=== PATIENT | female | born 1955 | race Caucasian/White ===

== ENCOUNTER → 2017-09-12 | Outpatient (CLI) | payer BC ==
--- NOTE | 2017-09-13 12:08 | MM ---
Reason for exam: screening (asymptomatic). Last mammogram was performed 1 year and 2 months ago. History: Patient is postmenopausal and had first child at age 34. Benign left breast aspiration of the left breast, July 30, 2013. Benign cyst aspiration of the right breast, 2008. Benign cyst aspiration of the left breast , 1979. Taking progesterone for 3 years 2 months. Physical Findings: A clinical breast exam by your physician is recommended on an annual basis and results should be correlated with mammographic findings. MG Screening Mammo w CAD Bilateral CC and MLO view(s) were taken. Prior study comparison: July 02, 2016, bilateral MG screening mammo w CAD. August 24, 2015, left breast MG 3d work up w/cad LT. The breast tissue is extremely dense which could obscure a lesion on mammography. Finding #1: There is a new 12 mm circumscribed oval mass in the middle position of the right breast. Finding #2: There are typically benign round calcifications in both breasts. Previous mammotome biopsy in the left breast. There is a chronic nodularity in the left breast. New developing asymmetry left upper outer quadrant. New focal asymmetry right posterior depth central MLO view. ASSESSMENT: Incomplete: need additional imaging evaluation, BI-RAD 0 RECOMMENDATION: Special view mammogram of both breasts. If lesion persists on supplemental views, image directed ultrasound is recommended. [facility] will attempt to contact patient to return for supplemental views and ultrasound if indicated. JACQUELINE
== END | disposition home or self-care (01) ==
LOC: RADMAMWWP 06:51
PROVIDERS: ATTEND Obstetrics & Gynecology
DX: Z12.31 Encounter for screening mammogram for malignant neoplasm of breast (principal)
CPT/HCPCS: 77067

== ENCOUNTER → 2017-09-18 | Outpatient (CLI) | payer BC ==
--- NOTE | 2017-09-18 08:34 | MM ---
Reason for exam: additional evaluation requested from abnormal screening. Last mammogram was performed less than 1 month ago. History: Patient is postmenopausal and had first child at age 34. Benign left breast aspiration of the left breast, July 30, 2013. Benign cyst aspiration of the right breast, 2008. Benign cyst aspiration of the left breast, 1979. Taking progesterone for 3 years 2 months. Physical Findings: Nurse did not find any significant physical abnormalities on exam. MG Work Up Mamm w CAD BILAT Bilateral spot compression CC, spot compression MLO, and LM view(s) were taken. Prior study comparison: September 12, 2017, bilateral MG screening mammo w CAD. July 02, 2016, bilateral MG screening mammo w CAD. The breast tissue is heterogeneously dense. This may lower the sensitivity of mammography. Right persistent nodularity. Left ultrasound recommended. These results were verbally communicated with the patient and result sheet given to the patient on 09/18/17. ASSESSMENT: Incomplete: need additional imaging evaluation, BI-RAD 0 RECOMMENDATION: Ultrasound of both breasts.
--- NOTE | 2017-09-18 08:36 | USB ---
Reason for exam: additional evaluation requested from abnormal screening. History: Patient is postmenopausal and had first child at age 34. Benign left breast aspiration of the left breast, July 30, 2013. Benign cyst aspiration of the right breast, 2008. Benign cyst aspiration of the left breast, 1979. Taking progesterone for 3 years 2 months. US Breast Workup Limited WEN Right breast ultrasound demonstrates a 0.6 x 0.5 x 0.5cm lesion too small to characterize at 3 o'clock and a 1.0 x 0.6 x 1.0cm cystic lesion at 6 o'clock. Left breast ultrasound demonstrates a 0.8 x 0.6 x 0.6cm mixed lesion at 2 o'clock. These results were verbally communicated with the patient and result sheet given to the patient on 09/18/17. ASSESSMENT: Probably benign, BI-RAD 3 RECOMMENDATION: Follow-up diagnostic mammogram and ultrasound of both breasts in 6 months.
== END | disposition home or self-care (01) ==
LOC: RADMAMWWP 07:02
PROVIDERS: ATTEND Obstetrics & Gynecology
DX: R92.8 Other abnormal and inconclusive findings on diagnostic imaging of breast (principal)
CPT/HCPCS: 77066

== ENCOUNTER → 2018-03-19 | Outpatient (CLI) | payer BC ==
--- NOTE | 2018-03-19 09:15 | MM ---
Reason for exam: follow-up at short interval from prior study. Last mammogram was performed 6 months ago. History: Patient is postmenopausal and had first child at age 34. Benign left breast aspiration of the left breast, July 30, 2013. Benign cyst aspiration of the right breast, 2008. Benign cyst aspiration of the left breast, 1979. Taking progesterone for 3 years 2 months. Physical Findings: Nurse Summary: 2cm nodule in the right breast at 10 o'clock (nurse dw). MG Diagnostic Mammo w CAD WEN Bilateral CC and MLO view(s) were taken. Prior study comparison: September 18, 2017, bilateral MG work up mamm w CAD BILAT. September 12, 2017, bilateral MG screening mammo w CAD. July 02, 2016, bilateral MG screening mammo w CAD. August 11, 2015, bilateral MG screening mammo w CAD. The breast tissue is heterogeneously dense. This may lower the sensitivity of mammography. Palpable marker 10 o'clock position right breast. Redemonstrated regional punctate calcifications and extensive nodularity bilaterally. These results were verbally communicated with the patient and result sheet given to the patient on 03/19/18. ASSESSMENT: Incomplete: need additional imaging evaluation, BI-RAD 0 RECOMMENDATION: Ultrasound of both breasts.
--- NOTE | 2018-03-19 09:27 | USB ---
Reason for exam: additional evaluation requested from abnormal screening. History: Patient is postmenopausal and had first child at age 34. Benign left breast aspiration of the left breast, July 30, 2013. Benign cyst aspiration of the right breast, 2008. Benign cyst aspiration of the left breast, 1979. Taking progesterone for 3 years 2 months. US Breast BILAT Right complete breast ultrasound includes all four quadrants, the retroareolar region and axilla. Finding demonstrates a 0.6 x 0.5 x 0.5cm cystic lesion at 1 o'clock, a 0.5 x 0.5 x 0.4cm cystic lesion at 3 o'clock likely with internal debris, 6 month follow up recommended, a 1.3 x 1.0 x 0.6cm cystic lesion at 6 o'clock, a 1.4 x 0.8 x 1.2cm cystic lesion at 7 o'clock and a 0.8 x 0.7 x 0.5cm cystic lesion at 10 o'clock imbedded in dense tissues corresponds to the palpable. Left complete breast ultrasound includes all four quadrants, the retroareolar region and axilla. Finding demonstrates a 1.0 x 0.8 x 0.6cm cystic lesion at 12 o'clock, a 0.7 x 0.6 x 0.6cm mixed lesion at 2 o'clock versus 8 x 6 x 6mm previously for which a 6 month follow up is recommended and a 1.3 x 1.2 x .1cm cystic lesion at 3 o'clock. These results were verbally communicated with the patient and result sheet given to the patient on 03/19/18. ASSESSMENT: Probably benign, BI-RAD 3 RECOMMENDATION: Ultrasound of both breasts in 6 months.
== END ==
LOC: RADMAMWWP 07:08
PROVIDERS: ATTEND Obstetrics & Gynecology
DX: R92.8 Other abnormal and inconclusive findings on diagnostic imaging of breast (principal)
CPT/HCPCS: 77066

== ENCOUNTER → 2018-10-03 | Outpatient (CLI) | payer BC ==
--- NOTE | 2018-10-05 11:19 | USB ---
Reason for exam: additional evaluation requested from prior study. History: Patient is postmenopausal and had first child at age 34. Benign left breast aspiration of the left breast, July 30, 2013. Benign cyst aspiration of the right breast, 2008. Benign cyst aspiration of the left breast, 1979. Taking progesterone for 3 years 2 months. Physical Findings: Nurse Summary: bilateral prominent nodules, a palpable at 1o'clock 0.5 x 0.5 cm more prominent than other palpables. US Breast BILAT Multicystic breasts-largest recorded and complex ones to compare to prior study, and the BB at the 1 o'clock tissue marker. Bilateral complete breast ultrasound includes all four quadrants, the retroareolar region and axilla. Finding demonstrates on the right breast a 0.6 x 0.8 x 0.2 cm oval irregular complex cystic lesion at 1 o'clock, a 0.4 x 0.4 x 0.4 round complex cystic lesion at 3 o'clock, and a 0.4 x 6 x 0.4 cm oval complex cystic lesion at 10 o'clock. On the left breast at the BB at 1 o'clock is a 2.1 x 1.9 x 0.5 cm oval cluster complex cystic lesion, a 1.8 x 1.3 x 0.9 cm oval cystic lesion at 2 o'clock, and a 1.1 x 1.3 x 0.7 oval complex cystic lesion at 2 o'clock. These results were verbally communicated with the patient and result sheet given to the patient on 10/03/18. ASSESSMENT: Benign, BI-RAD 2 RECOMMENDATION: Follow-up diagnostic mammogram of both breasts in 6 months.
== END | disposition home or self-care (01) ==
LOC: RADUSWWP 15:13
PROVIDERS: ATTEND Obstetrics & Gynecology
DX: R92.8 Other abnormal and inconclusive findings on diagnostic imaging of breast (principal)

== ENCOUNTER → 2019-05-06 | Outpatient (CLI) | payer BC ==
--- NOTE | 2019-05-06 09:50 | MM ---
Reason for exam: additional evaluation requested from prior study. Last mammogram was performed 1 year and 2 months ago. History: Patient is postmenopausal and had first child at age 34. Benign left breast aspiration of the left breast, July 30, 2013. Benign cyst aspiration of the right breast, 2008. Benign cyst aspiration of the left breast, 1979. Taking estrogen for 7 years beginning at age 56. Physical Findings: Nurse did not find any significant physical abnormalities on exam. MG Diagnostic Mammo w CAD WEN Bilateral CC and MLO view(s) were taken. Prior study comparison: March 19, 2018, bilateral MG diagnostic mammo w CAD WEN. September 18, 2017, bilateral MG work up mamm w CAD BILAT. The breast tissue is extremely dense which could obscure a lesion on mammography. There is a 13mm round circumscribed right breast mass at 5-6 o'clock middle position 3cm from nipple. Previous mammotome biopsy in the left breast. This finding is changed when compared with previous exams. These results were verbally communicated with the patient and result sheet given to the patient on 05/06/19. ASSESSMENT: Incomplete: need additional imaging evaluation, BI-RAD 0 RECOMMENDATION: Ultrasound of the right breast.
--- NOTE | 2019-05-06 09:51 | USB ---
Reason for exam: additional evaluation requested from abnormal screening. History: Patient is postmenopausal and had first child at age 34. Benign left breast aspiration of the left breast, July 30, 2013. Benign cyst aspiration of the right breast, 2008. Benign cyst aspiration of the left breast, 1979. Taking estrogen for 7 years beginning at age 56. US Breast Limited RT Right limited breast ultrasound including focal area of concern, retroareolar and axilla demonstrates three oval cystic lesions measuring 4 x 4 x 4mm at 3 o'clock, 13 x 9 x 13mm at 5 o'clock and 5 x 5 x 5mm at 6 o'clock. These results were verbally communicated with the patient and result sheet given to the patient on 05/06/19. ASSESSMENT: Benign, BI-RAD 2 RECOMMENDATION: Routine screening mammogram of both breasts in 1 year.
== END | disposition home or self-care (01) ==
LOC: RADMAMWWP 06:57
PROVIDERS: ATTEND Family Medicine
DX: R92.2 Inconclusive mammogram (principal); R92.8 Other abnormal and inconclusive findings on diagnostic imaging of breast
CPT/HCPCS: 77066

== ENCOUNTER → 2020-08-11 | Outpatient (CLI) | payer BC ==
--- NOTE | 2020-08-12 14:46 | MM ---
Reason for exam: screening (asymptomatic). Last mammogram was performed 1 year and 3 months ago. History: Patient is postmenopausal and had first child at age 34. Benign left breast aspiration of the left breast, July 30, 2013. Benign cyst aspiration of the right breast, 2008. Benign cyst aspiration of the left breast, 1979. Taking estrogen for 8 years 3 months beginning at age 56. Physical Findings: A clinical breast exam by your physician is recommended on an annual basis and results should be correlated with mammographic findings. MG 3D Screening Mammo W/Cad Bilateral CC and MLO view(s) were taken. Prior study comparison: May 06, 2019, bilateral MG diagnostic mammo w CAD WEN. March 19, 2018, bilateral MG diagnostic mammo w CAD WEN. The breast tissue is extremely dense which could obscure a lesion on mammography. Finding: There is a 14 mm equal density (isodense), partially obscured oval mass in the 9 o'clock outer quadrant, middle position of the right breast. New finding since May 06, 2019 and March 19, 2018. ASSESSMENT: Incomplete: need additional imaging evaluation, BI-RAD 0 RECOMMENDATION: Ultrasound of the right breast. [facility] will attempt to contact patient to return for ultrasound.
== END | disposition home or self-care (01) ==
LOC: RADMAMWWP 15:41
PROVIDERS: ATTEND Obstetrics & Gynecology
DX: Z12.31 Encounter for screening mammogram for malignant neoplasm of breast (principal)
CPT/HCPCS: 77063; 77067

== ENCOUNTER → 2020-08-18 | Outpatient (CLI) | payer BC ==
--- NOTE | 2020-08-18 10:00 | USB ---
Reason for exam: additional evaluation requested from abnormal screening. History: Patient is postmenopausal and had first child at age 34. Benign left breast aspiration of the left breast, July 30, 2013. Benign cyst aspiration of the right breast, 2008. Benign cyst aspiration of the left breast, 1979. Taking estrogen for 8 years 3 months beginning at age 56. Physical Findings: Nurse Summary: dense tissue thickeness (nurse ms). US Breast Workup Limited RT Right limited breast ultrasound including focal area of concern, retroareolar and axilla demonstrates a 1.9 x 1.0 x 1.5cm simple, cystic lesion at 9 o'clock and a 0.5 x 0.4 x 0.5cm cystic lesion at 11 o'clock. These results were verbally communicated with the patient and result sheet given to the patient on 08/18/20. ASSESSMENT: Benign, BI-RAD 2 RECOMMENDATION: Return to routine screening mammogram schedule for both breasts.
== END | disposition home or self-care (01) ==
LOC: RADUSWWP 07:38
PROVIDERS: ATTEND Obstetrics & Gynecology
DX: R92.8 Other abnormal and inconclusive findings on diagnostic imaging of breast (principal)

== ENCOUNTER → 2020-10-17 | Outpatient (CLI) | payer BC ==
[2020-10-17 11:28] LABS: African American GFR (CKD) 104.6 (60.0-200.0); Albumin 4.2 g/dL (3.80-4.90); Albumin/Globulin Ratio 2.63 (1.60-3.17); Anion Gap 7.4 mmol/L (4.00-12.00); BUN/Creat Ratio 17.14 Ratio (12.00-20.00); Calcium 8.9 mg/dL (8.7-10.3); Carbon Dioxide 27.6 mmol/L (21.6-31.8); Chol/HDL Ratio 2.56; Globulin 1.6 g/dL (1.6-3.3); LDL Cholesterol,Calculated 104.6 mg/dL (0.0-131.0); Non-African American GFR(CKD) 90.3 (60.0-200.0); Potassium 4.3 mmol/L (3.5-5.5); Total Protein 5.8 g/dL (6.2-8.2); VLDL Calculation 17.4 mg/dL (5.00-40.00)
[2020-10-17 11:29] LABS: Basophils # (A) 0.05 X 10*3/uL (0.00-0.10); Eosinophils # (A) 0.18 X 10*3/uL (0.04-0.35); Eosinophils % (A) 3.7 %; HCT 40.2 % (37.2-46.3); HGB 13.2 g/dL (12.0-15.0); Lymphocytes # (A) 1.56 X 10*3/uL (0.90-5.00); Lymphocytes % (A) 31.8 %; MCH 30.6 pg (27.0-32.0); MCHC 32.8 g/dL (32.0-37.0); MCV 93.3 fL (80.0-97.0); Mean Platelet Volume 9.6 fL (9.5-12.2); Monocytes # (A) 0.39 X 10*3/uL (0.20-1.00); Monocytes % (A) 7.9 %; Neutrophils # (A) 2.72 X 10*3/uL (1.80-7.70); Neutrophils % (A) 55.4 %; Platelet Count 224 X 10*3/uL (140-440); RBC 4.31 X 10*6/uL (4.10-5.20); RDW 12.3 % (11.5-14.5); WBC 4.91 X 10*3/uL (4.50-10.00)
== END | disposition home or self-care (01) ==
LOC: LABWHC1 07:50
PROVIDERS: ATTEND Family Medicine
DX: Z00.00 Encounter for general adult medical examination without abnormal findings (principal)
CPT/HCPCS: 36415; 80053; 80061; 84443; 85025